=== PATIENT | female | born 1980 | race Caucasian/White ===

== ENCOUNTER 2019-04-10 02:00 | Inpatient (IN) | payer MEDICAID ==
[~2019-04-10] VITALS: Ht 165.1 cm; Wt 54.4 kg
[2019-04-10] MEDS ORDERED: SODIUM CHLORIDE 0.9% 1,000 ML IV ONE (02:28)
[2019-04-10] MEDS ORDERED: KETOROLAC 30MG/ML VIAL IV STA (02:28)
[2019-04-10] MEDS ORDERED: ONDANSETRON HCL 4MG/2ML INJ IV STA (02:28)
[2019-04-10 02:51] LABS: BASOPHILS % 0.5 % (0.0-2.0); EOSINOPHILS % 0.1 % (0.0-5.0); HEMATOCRIT. 40.2 % (36.0-48.0); HEMOGLOBIN. 13.6 g/dL (12.0-16.0); LYMPHOCYTES % 8.7 % (20.0-50.0); MEAN CORPUSCULAR HEMOGLOBIN 28.2 pg (28.0-32.0); MEAN CORPUSCULAR VOLUME 83.2 fL (81.0-99.0); MEAN PLATELET VOLUME 8.1 fl (7.4-10.4); MONOCYTES % 11.1 % (2.0-8.0); NEUTROPHILS % 79.6 % (40.0-76.0); PLATELET 557 x1000/uL (130-400); RED BLOOD CELL COUNT 4.83 mill/uL (4.2-5.4); RED CELL DISTRIBUTION WIDTH 14.7 % (11.6-14.6)
[2019-04-10 02:59] LABS: CHLORIDE 103 mEq/L (98-107)
[2019-04-10] MEDS ORDERED: SODIUM CHLORIDE 0.9% 1000ML BAG (SEPSIS BOLUS) IV NR (04:15)
[2019-04-10] MEDS ORDERED: IOHEXOL-300 100 ML BOTTLE ONE (05:22)
[2019-04-10] MEDS ORDERED: VANCOMYCIN 1 G PREMIX 200 ML IV SCH (05:45)
[2019-04-10] MEDS ORDERED: PIPERACILLIN/TAZOBACTAM 3.375GM/50ML PREMIX IV ONE (05:45)
[2019-04-10] MEDS ORDERED: PIPERACILLIN/TAZ 3.375G PREMIX 50 ML IV NR (06:00)
[2019-04-10] MEDS ORDERED: CLONIDINE 0.1MG TABLET PO PRN (07:30)
[2019-04-10] MEDS ORDERED: MAGNESIUM/ALUMINUM HYDROXIDE/SIMETHICONE 30ML UDC PO PRN (07:30)
[2019-04-10] MEDS ORDERED: PIPERACILLIN/TAZ 3.375G PREMIX 50 ML IV SCH (07:30)
[2019-04-10] MEDS ORDERED: ONDANSETRON HCL 4MG/2ML INJ IV PRN (07:30)
[2019-04-10] MEDS ORDERED: DOCUSATE SODIUM 100MG CAPSULE PO PRN (07:30)
[2019-04-10] MEDS ORDERED: GUAIFENESIN 200MG/10ML SUGAR FREE UDC PO PRN (07:30)
[2019-04-10] MEDS ORDERED: DIPHENHYDRAMINE 50MG/ML VIAL IV PRN (07:30)
[2019-04-10] MEDS ORDERED: IPRATROPIUM/ALBUTEROL 0.5-3(2.5)MG/3ML NEB HHN PRN (07:30)
[2019-04-10 08:20] VITALS: BP 78/48
[2019-04-10 08:40] LABS: PHOSPHORUS 1.8 mg/dL (2.5-4.9)
[2019-04-10] MEDS ORDERED: POTASSIUM CHLORIDE 20MEQ/PACKET PO SCH (09:00)
[2019-04-10] MEDS ORDERED: SODIUM CHLORIDE 0.9% 1,000 ML IV SCH (09:00)
[2019-04-10] MEDS: ENOXAPARIN 40MG/0.4ML SYR SUBCUT SCH (10:06)
[2019-04-10] MEDS: PIPERACILLIN/TAZOBACTAM 3.375 G in DEXT 5% WATER 100 ML IV SCH ×2 (12:48→20:26)
[2019-04-10] MEDS: MORPHINE SULFATE 2 MG/ML CPJ (NOT FOR IM USE) IV PRN ×2 (12:57→21:24)
[2019-04-10] MEDS ORDERED: VANCOMYCIN 500 MG PREMIX 100 ML IV SCH (14:00)
[2019-04-10] MEDS ORDERED: VANCOMYCIN 750 MG PREMIX 150 ML IV SCH (15:00)
[2019-04-10] MEDS: PANTOPRAZOLE 40MG DR TABLET PO SCH (16:25)
[2019-04-10 17:02] VITALS: BP 135/69
[2019-04-10 20:00] VITALS: BP 100/60
[2019-04-11] VITALS: BP 90/52
[2019-04-11] MEDS: PIPERACILLIN/TAZOBACTAM 3.375 G in DEXT 5% WATER 100 ML IV SCH ×4 (02:11→18:42)
[2019-04-11] MEDS: ACETAMINOPHEN 325MG TABLET PO PRN ×2 (02:11→09:59)
[2019-04-11] MEDS: VANCOMYCIN 750 MG PREMIX 150 ML IV SCH ×2 (02:55→09:58)
[2019-04-11 03:10] VITALS: BP 92/50
[2019-04-11 04:13] LABS: BASOPHILS % 0.6 % (0.0-2.0); EOSINOPHILS % 1.1 % (0.0-5.0); HEMATOCRIT. 26.9 % (36.0-48.0); HEMOGLOBIN. 9.2 g/dL (12.0-16.0); LYMPHOCYTES % 27.2 % (20.0-50.0); MEAN CORPUSCULAR HEMOGLOBIN 28.6 pg (28.0-32.0); MEAN CORPUSCULAR VOLUME 83.8 fL (81.0-99.0); MEAN PLATELET VOLUME 7.4 fl (7.4-10.4); MONOCYTES % 12.1 % (2.0-8.0); PLATELET 368 x1000/uL (130-400); RED BLOOD CELL COUNT 3.21 mill/uL (4.2-5.4); RED CELL DISTRIBUTION WIDTH 15.2 % (11.6-14.6)
[2019-04-11 04:21] LABS: CHLORIDE 111 mEq/L (98-107)
[2019-04-11 04:28] LABS: HDL CHOLESTEROL 21 mg/dL (40-59); LDL CHOLESTEROL 54 mg/dL (5-100)
[2019-04-11 04:29] LABS: VANCOMYCIN TROUGH 31.9 ug/mL (5.0-10.0)
[2019-04-11 08:00] VITALS: BP 87/49
[2019-04-11] MEDS: PANTOPRAZOLE 40MG DR TABLET PO SCH ×2 (09:58→20:25)
[2019-04-11] MEDS: ENOXAPARIN 40MG/0.4ML SYR SUBCUT SCH (09:59)
[2019-04-11] MEDS ORDERED: TRAMADOL 50MG TABLET PO PRN (10:00)
[2019-04-11] MEDS ORDERED: SODIUM CHLORIDE 0.9% 1,000 ML IV ONE (10:00)
[2019-04-11] MEDS ORDERED: POTASSIUM CHLORIDE INJ 40 MEQ in DEXT 5% WATER 250 ML IV SCH (12:00)
[2019-04-11 12:45] VITALS: BP 92/53
[2019-04-11] MEDS: DEXT 5%/0.9% NACL 1,000 ML IV SCH ×2 (14:00→21:30)
[2019-04-11] MEDS: SUCRALFATE 1G TABLET PO SCH ×3 (14:01→20:25)
[2019-04-11 14:24] LABS: HEMATOCRIT 28.9 % (36.0-48.0); HEMOGLOBIN 9.7 g/dL (12.0-16.0); MEAN CORPUSCULAR HEMOGLOBIN 28.2 pg (28.0-32.0); PLATELET 413 x1000/uL (130-400); RED BLOOD CELL COUNT 3.44 mill/uL (4.2-5.4)
[2019-04-11 14:30] LABS: INR 1.1; PROTHROMBIN TIME 11.2 sec (9.6-11.0)
[2019-04-11 16:00] VITALS: BP 90/51
[2019-04-11 17:09] LABS: HEMATOCRIT 26.3 % (36.0-48.0); HEMOGLOBIN 8.9 g/dL (12.0-16.0)
[2019-04-11 20:00] VITALS: BP 101/58
[2019-04-11] MEDS: MORPHINE SULFATE 2 MG/ML CPJ (NOT FOR IM USE) IV PRN (20:25)
[2019-04-11 23:49] LABS: *AMPHETAMINES SCREEN URINE NEGATIVE (NEGATIVE); *BARBITURATES SCREEN URINE NEGATIVE (NEGATIVE); *COCAINE SCREEN URINE NEGATIVE (NEGATIVE); CANNABINOID URINE SCREEN NEGATIVE (NEGATIVE); PHENCYCLIDINE URINE SCREEN NEGATIVE (NEGATIVE)
[2019-04-11 23:50] LABS: *BENZODIAZEPINES SCREEN URINE NEGATIVE (NEGATIVE); METHADONE URINE SCREEN NEGATIVE (NEGATIVE); OPIATES URINE SCREEN PRESUMTIVE POSITIVE (NEGATIVE)
[2019-04-12] VITALS: BP 95/54
[2019-04-12] MEDS: PIPERACILLIN/TAZOBACTAM 3.375 G in DEXT 5% WATER 100 ML IV SCH ×4 (00:24→17:31)
[2019-04-12 04:00] VITALS: BP 91/52
[2019-04-12 06:58] LABS: BASOPHILS % 0.6 % (0.0-2.0); EOSINOPHILS % 3.2 % (0.0-5.0); HEMATOCRIT. 25.9 % (36.0-48.0); HEMOGLOBIN. 8.8 g/dL (12.0-16.0); LYMPHOCYTES % 38.8 % (20.0-50.0); MEAN CORPUSCULAR HEMOGLOBIN 28.2 pg (28.0-32.0); MEAN CORPUSCULAR VOLUME 83.3 fL (81.0-99.0); MEAN PLATELET VOLUME 8.6 fl (7.4-10.4); MONOCYTES % 13.1 % (2.0-8.0); NEUTROPHILS % 44.3 % (40.0-76.0); PLATELET 404 x1000/uL (130-400); RED BLOOD CELL COUNT 3.11 mill/uL (4.2-5.4); RED CELL DISTRIBUTION WIDTH 14.7 % (11.6-14.6)
[2019-04-12 07:56] LABS: CHLORIDE 109 mEq/L (98-107)
[2019-04-12 08:00] VITALS: BP 127/108
[2019-04-12] MEDS: DEXT 5%/0.9% NACL 1,000 ML IV SCH (08:15)
[2019-04-12] MEDS: PANTOPRAZOLE 40MG DR TABLET PO SCH (08:16)
[2019-04-12] MEDS: SUCRALFATE 1G TABLET PO SCH ×3 (08:16→17:31)
[2019-04-12 12:00] VITALS: BP 115/90
[2019-04-12 16:00] VITALS: BP 102/78
[2019-04-12 16:15] LABS: HEMATOCRIT 27.9 % (36.0-48.0); HEMOGLOBIN 9.3 g/dL (12.0-16.0)
[2019-04-12 19:03] VITALS: BP 95/36
[2019-04-14 04:12] LABS: HIV SCREEN 4G Non Reactive (Non Reactive)
[2019-04-14 09:06] LABS: SACCHAROMYCES CEREVISIAE IGG <20.0 Units (0.0-24.9); SACCHAROMYCES CEREVISIAE IGM <20.0 Units (0.0-24.9)
[2019-04-14 15:11] LABS: ATYPICAL pANCA <1:20 titer (Neg:<1:20)
== END 2019-04-12 19:50 | disposition left against medical advice (07) | DRG 720 ==
LOC: ER 02:00 → 7WST 06:00 → ENRESERV 07:00
PROVIDERS: ADMIT Internal Medicine; ATTEND Internal Medicine
DX: A41.9 Sepsis, unspecified organism (principal); E44.1 Mild protein-calorie malnutrition; E87.1 Hypo-osmolality and hyponatremia; R71.0 Precipitous drop in hematocrit; E86.1 Hypovolemia; Z53.21 Procedure and treatment not carried out due to patient leaving prior to being seen by health care provider; E87.6 Hypokalemia; F15.10 Other stimulant abuse, uncomplicated; F17.210 Nicotine dependence, cigarettes, uncomplicated; I49.1 Atrial premature depolarization; Z68.20 Body mass index [BMI] 20.0-20.9, adult; K52.9 Noninfective gastroenteritis and colitis, unspecified
CPT/HCPCS: 36415; 71045; 74177; 78278; 80048; 80061; 80202; 80305; 82270; 83605; 83735; 84100; 84145; 84443; 84484; 85014; 85018; 85027; 85044; 86256; 86671; 86850; 86900; 87015; 87045; 87389; 87427; 87449; 89055; 93005; 93306; 93970; 96365; 99291; A9560; J1200; J1650; J1885; J2270; J2405; J2543; J3370; J3480; J7030; J7042; J7060; Q9967

== ENCOUNTER 2022-09-07 16:38 | Inpatient (IN) | payer MEDICAID, OTHER ==
[~2022-09-07] VITALS: Ht 152.4 cm; Wt 55.4 kg
[2022-09-07] MEDS ORDERED: SODIUM CHLORIDE 0.9% 1,000 ML IV ONE (22:15)
[2022-09-07 22:29] LABS: HEMATOCRIT. 25.1 % (36.0-48.0); HEMOGLOBIN. 7.6 g/dL (12.0-16.0); MEAN CORPUSCULAR HEMOGLOBIN 18.8 pg (28.0-32.0); MEAN CORPUSCULAR VOLUME 62.3 fL (81.0-99.0); MEAN PLATELET VOLUME 8.9 fl (7.4-10.4); PLATELET 433 x1000/uL (130-400); RED BLOOD CELL COUNT 4.04 mill/uL (4.2-5.4); RED CELL DISTRIBUTION WIDTH 18.7 % (11.6-14.6)
[2022-09-07 22:36] LABS: CHLORIDE 100 mEq/L (98-107)
[2022-09-07 22:50] LABS: HCG SCREEN NEGATIVE
[2022-09-07 22:55] LABS: CLARITY URINE CLOUDY (CLEAR); COLOR URINE ORANGE (YELLOW); KETONES URINE TRACE (NEGATIVE); LEUKOCYTE ESTERASE URINE 2+ (NEGATIVE); NITRITE URINE POSITIVE (NEGATIVE); OCCULT BLOOD URINE 1+ (NEGATIVE); PROTEIN URINE 2+ (NEGATIVE)
[2022-09-07] MEDS ORDERED: NOREPINEPHRINE 8MG/250ML PMX 250 ML IV ONE (23:15)
[2022-09-07] MEDS ORDERED: VANCOMYCIN 1G PREMIX 200 ML IV ONE (23:15)
[2022-09-07] MEDS ORDERED: SODIUM CHLORIDE 0.9% 1000ML BAG (SEPSIS BOLUS) IV ONE (23:15)
[2022-09-07] MEDS ORDERED: PIPERACILLIN/TAZ 3.375G PREMIX 50 ML IV ONE (23:15)
[2022-09-07 23:22] LABS: PLATELET ESTIMATE INCREASED
[2022-09-08] VITALS (59 sets, daily range): BP systolic 80–141; BP diastolic 48–86
[2022-09-08] MEDS ORDERED: ACETAMINOPHEN 325MG TABLET PO ONE (00:45)
[2022-09-08] MEDS ORDERED: DOCUSATE SODIUM 100MG CAPSULE PO PRN (01:00)
[2022-09-08] MEDS ORDERED: ACETAMINOPHEN 325MG TABLET PO PRN (01:00)
[2022-09-08] MEDS ORDERED: IPRATROPIUM/ALBUTEROL 0.5-3(2.5)MG/3ML NEB HHN PRN (01:00)
[2022-09-08] MEDS ORDERED: MAGNESIUM/ALUMINUM HYDROXIDE/SIMETHICONE 30ML UDC PO PRN (01:00)
[2022-09-08] MEDS: SODIUM CHLORIDE 0.9% 1,000 ML IV SCH ×2 (01:00→07:11)
[2022-09-08] MEDS ORDERED: NOREPINEPHRINE 8 MG in DEXT 5% WATER 242 ML IV PRN ×2 (01:00→02:45)
[2022-09-08 01:55] LABS: TOTAL IRON BINDING CAPACITY 403 ug/dL (250-450)
[2022-09-08] MEDS ORDERED: MEROPENEM 1,000 MG in SODIUM CHLORIDE 0.9% 100 ML IV SCH ×2 (03:00→03:30)
[2022-09-08 03:09] LABS: HEPATITIS B SURFACE ANTIGEN NEGATIVE
[2022-09-08 03:14] LABS: BG BASE EXCESS -9.2 mmol/L (-2.0-2.0); BG CARBOXYHEMOGLOBIN 1.7 % (0.5-1.5); BG DEOXYHEMOGLOBIN 7.4 % (0.0-5.0); BG FRACTION INSPIRED OXYGEN 21; BG HCO3 ACT 14.4 mmol/L (22.0-26.0); BG METHEMOGLOBIN 0.2 % (0.0-1.5); BG OXYGEN SATURATION 92.5 % (92.0-98.5); BG OXYHEMOGLOBIN 90.7 % (94.0-97.0); BG PCO2 22.6 mmHg (35.0-45.0); BG PH 7.422 (7.350-7.450); BG SAMPLE SITE LEFT RADIAL; BG TOTAL HEMOGLOBIN 6.1 g/dL (12.0-18.0); BG VENT MODE ROOM AIR
[2022-09-08] MEDS: HYDROCODONE/ACETAMINOPHEN 5/325MG TABLET PO PRN ×3 (03:44→18:28)
[2022-09-08] MEDS ORDERED: PHENYLEPHRINE 100 MG in DEXT 5% WATER 240 ML IV PRN (04:15)
[2022-09-08 05:36] LABS: MEAN CORPUSCULAR HEMOGLOBIN 19.1 pg (28.0-32.0); MEAN CORPUSCULAR VOLUME 62.2 fL (81.0-99.0); PLATELET 323 x1000/uL (130-400)
[2022-09-08 05:37] LABS: CHLORIDE 110 mEq/L (98-107)
[2022-09-08 05:47] LABS: CREATINE KINASE 97 IU/L (26-192); CREATINE KINASE MB FRACTION 3.3 ng/mL (0.5-3.6)
[2022-09-08 06:09] LABS: HEMATOCRIT 20.5 % (36.0-48.0); HEMOGLOBIN 6.3 g/dL (12.0-16.0)
[2022-09-08] MEDS ORDERED: ENOXAPARIN 40MG/0.4ML SYR SUBCUT SCH (09:00)
[2022-09-08] MEDS ORDERED: DEXT 5%/0.9% NACL 1,000 ML IV SCH (09:15)
[2022-09-08] MEDS: PHENYLEPHRINE 100 MG in DEXT 5% WATER 240 ML IV PRN (09:19)
[2022-09-08] MEDS: FAMOTIDINE 20MG/2ML VIAL IV SCH ×2 (09:25→21:43)
[2022-09-08] MEDS ORDERED: NALOXONE HCL 0.4MG/ML VIAL IV PRN (09:45)
[2022-09-08] MEDS ORDERED: IPRATROPIUM BROMIDE (0.02%) 0.5MG/2.5ML NEB HHN SCH (10:00)
[2022-09-08] MEDS ORDERED: MORPHINE SULFATE 2 MG/ML CPJ (NOT FOR IM USE) IV NR (10:45)
[2022-09-08 11:02] LABS: BG BASE EXCESS -8.3 mmol/L (-2.0-2.0); BG CARBOXYHEMOGLOBIN 1.4 % (0.5-1.5); BG DEOXYHEMOGLOBIN 6.8 % (0.0-5.0); BG FRACTION INSPIRED OXYGEN 40; BG HCO3 ACT 15.9 mmol/L (22.0-26.0); BG METHEMOGLOBIN 0.1 % (0.0-1.5); BG OXYGEN SATURATION 93.1 % (92.0-98.5); BG OXYHEMOGLOBIN 91.7 % (94.0-97.0); BG PCO2 27.1 mmHg (35.0-45.0); BG PH 7.385 (7.350-7.450); BG PO2 68.3 mmHg (75.0-100.0); BG SAMPLE SITE RIGHT RADIAL; BG TOTAL HEMOGLOBIN 6.8 g/dL (12.0-18.0); BG VENT MODE NASAL CANNULA
[2022-09-08] MEDS ORDERED: IOHEXOL-350 100 ML BOTTLE ONE (11:06)
[2022-09-08] MEDS ORDERED: VANCOMYCIN 750MG PREMIX 150 ML IV SCH (11:30)
[2022-09-08 13:05] LABS: HEMATOCRIT 24.3 % (36.0-48.0); HEMOGLOBIN 7.3 g/dL (12.0-16.0)
[2022-09-08] MEDS ORDERED: AZITHROMYCIN 500 MG TABLET PO SCH (13:15)
[2022-09-08] MEDS ORDERED: DEXTROSE 50% WATER 50ML SYRINGE IV NR (14:15)
[2022-09-08] MEDS: MEROPENEM 1,000 MG in SODIUM CHLORIDE 0.9% 100 ML IV SCH ×2 (15:49→21:44)
[2022-09-08] MEDS: DEXT 5%/0.9% NACL 1,000 ML IV SCH ×2 (15:57→20:00)
[2022-09-08] MEDS: VANCOMYCIN 750MG PREMIX 150 ML IV SCH ×2 (15:57→23:14)
[2022-09-08] MEDS ORDERED: KCL 20MEQ/100ML PREMIX 100 ML IV NR (16:00)
[2022-09-08 16:15] LABS: CREATINE KINASE MB FRACTION 3.3 ng/mL (0.5-3.6)
[2022-09-08] MEDS: DIPHENHYDRAMINE 50MG/ML VIAL IV PRN (18:04)
[2022-09-08] MEDS: ONDANSETRON HCL 4MG/2ML INJ IV PRN (21:44)
[2022-09-08] MEDS: ACETAMINOPHEN 325MG TABLET PO PRN (21:44)
[2022-09-09] VITALS (104 sets, daily range): BP systolic 65–200; BP diastolic 19–100
[2022-09-09] MEDS: HYDROCODONE/ACETAMINOPHEN 5/325MG TABLET PO PRN ×3 (04:10→21:55)
[2022-09-09] MEDS: ONDANSETRON HCL 4MG/2ML INJ IV PRN (04:10)
[2022-09-09] MEDS: DEXT 5%/0.9% NACL 1,000 ML IV SCH ×2 (05:27→16:25)
[2022-09-09] MEDS: MEROPENEM 1,000 MG in SODIUM CHLORIDE 0.9% 100 ML IV SCH ×3 (05:28→23:16)
[2022-09-09 05:49] LABS: HEMATOCRIT. 21.2 % (36.0-48.0); MEAN CORPUSCULAR VOLUME 64.1 fL (81.0-99.0); PLATELET 357 x1000/uL (130-400); RED BLOOD CELL COUNT 3.31 mill/uL (4.2-5.4); RED CELL DISTRIBUTION WIDTH 19.3 % (11.6-14.6)
[2022-09-09 06:00] LABS: CHLORIDE 112 mEq/L (98-107)
[2022-09-09 06:13] LABS: HDL CHOLESTEROL 16 mg/dL (40-59); LDL CHOLESTEROL 25 mg/dL (5-100)
[2022-09-09 06:31] LABS: HEMOGLOBIN. 6.3 g/dL (12.0-16.0)
[2022-09-09 07:36] LABS: PLATELET ESTIMATE NORMAL
[2022-09-09] MEDS ORDERED: KCL 20MEQ/100ML PREMIX 100 ML IV SCH (08:00)
[2022-09-09] MEDS: FAMOTIDINE 20MG/2ML VIAL IV SCH ×2 (08:24→20:27)
[2022-09-09] MEDS: AZITHROMYCIN 250 MG TABLET PO SCH (08:24)
[2022-09-09] MEDS ORDERED: MORPHINE SULFATE 2 MG/ML CPJ (NOT FOR IM USE) IV NR (11:00)
[2022-09-09] MEDS: VANCOMYCIN 750MG PREMIX 150 ML IV SCH ×2 (11:15→23:15)
[2022-09-09] MEDS ORDERED: POTASSIUM CHLORIDE INJ 40 MEQ in DEXT 5% WATER 250 ML IV ONE (11:15)
[2022-09-09] MEDS: PHENYLEPHRINE 100 MG in DEXT 5% WATER 240 ML IV PRN (11:16)
[2022-09-09] MEDS ORDERED: MORPHINE SULFATE 2 MG/ML CPJ (NOT FOR IM USE) IV SCH (12:00)
[2022-09-09 13:20] LABS: GLUCOSE CSF 64 mg/dL (41-75)
[2022-09-09 13:32] LABS: *BARBITURATES SCREEN URINE NEGATIVE (NEGATIVE); *BENZODIAZEPINES SCREEN URINE NEGATIVE (NEGATIVE); *COCAINE SCREEN URINE NEGATIVE (NEGATIVE); CANNABINOID URINE SCREEN NEGATIVE (NEGATIVE); METHADONE URINE SCREEN NEGATIVE (NEGATIVE); PHENCYCLIDINE URINE SCREEN NEGATIVE (NEGATIVE)
[2022-09-09 13:34] LABS: *AMPHETAMINES SCREEN URINE PRESUMTIVE POSITIVE (NEGATIVE); OPIATES URINE SCREEN PRESUMTIVE POSITIVE (NEGATIVE)
[2022-09-09] MEDS: KCL 20MEQ/100ML X 2 FOR TOTAL KCL 40MEQ/200ML IV SCH ×2 (13:38→15:08)
[2022-09-09 18:05] LABS: INR 1.1; PROTHROMBIN TIME 11.4 sec (9.6-11.0)
[2022-09-09] MEDS ORDERED: FOLIC ACID 1 MG, THIAMINE HCL 100 MG, MVI, ADULT NO.1 10 ML in DEXTROSE 5% WATER 1,000 ML IV ONE ×4 (20:00)
[2022-09-09 21:56] LABS: HEMATOCRIT 27.7 % (36.0-48.0); HEMOGLOBIN 8.7 g/dL (12.0-16.0)
[2022-09-09 22:35] LABS: SODIUM URINE (RAW) 75 mEq/L; SODIUM URINE 24 HR 393 mEq/24hr (40-220)
[2022-09-10] VITALS (79 sets, daily range): BP systolic 85–137; BP diastolic 50–98
[2022-09-10] MEDS: ACETAMINOPHEN 325MG TABLET PO PRN (00:54)
[2022-09-10 05:05] LABS: CHLORIDE 110 mEq/L (98-107)
[2022-09-10 05:17] LABS: PHOSPHORUS 1.2 mg/dL (2.5-4.9)
[2022-09-10 05:48] LABS: HEMATOCRIT. 26.2 % (36.0-48.0); HEMOGLOBIN. 8.1 g/dL (12.0-16.0); MEAN CORPUSCULAR HEMOGLOBIN 20.3 pg (28.0-32.0); MEAN CORPUSCULAR VOLUME 65.1 fL (81.0-99.0); MEAN PLATELET VOLUME 9.1 fl (7.4-10.4); PLATELET 286 x1000/uL (130-400); RED BLOOD CELL COUNT 4.02 mill/uL (4.2-5.4); RED CELL DISTRIBUTION WIDTH 22.6 % (11.6-14.6)
[2022-09-10 05:58] LABS: FOLIC ACID (FOLATE) SERUM 17.1 ng/mL (>5.38)
[2022-09-10] MEDS: MEROPENEM 1,000 MG in SODIUM CHLORIDE 0.9% 100 ML IV SCH ×3 (06:24→21:22)
[2022-09-10] MEDS: HYDROCODONE/ACETAMINOPHEN 5/325MG TABLET PO PRN ×2 (06:26→23:22)
[2022-09-10] MEDS: FERROUS SULFATE 325MG TABLET PO SCH ×3 (06:27→17:57)
[2022-09-10 07:55] LABS: PLATELET ESTIMATE NORMAL
[2022-09-10] MEDS: FAMOTIDINE 20MG/2ML VIAL IV SCH ×2 (08:30→21:22)
[2022-09-10] MEDS: AZITHROMYCIN 250 MG TABLET PO SCH (08:30)
[2022-09-10] MEDS: DEXT 5%/0.9% NACL 1,000 ML IV SCH ×5 (08:31→21:36)
[2022-09-10] MEDS ORDERED: POTASSIUM PHOS,M-BASIC-D-BASIC 20 MMOL in DEXT 5% WATER 243.3333 ML IV ONE (10:00)
[2022-09-10] MEDS: VANCOMYCIN 750MG PREMIX 150 ML IV SCH ×2 (12:27→17:57)
[2022-09-10] MEDS: HYDROCODONE/ACETAMINOPHEN 7.5/325MG TABLET PO PRN ×2 (12:29→17:58)
[2022-09-10] MEDS ORDERED: SODIUM CHLORIDE 10% FOR INH 15ML VIAL NEB INH NR (20:00)
[2022-09-10] MEDS: PHENYLEPHRINE 100 MG in DEXT 5% WATER 240 ML IV PRN (22:50)
[2022-09-11] VITALS (37 sets, daily range): BP systolic 93–148; BP diastolic 46–83
[2022-09-11] MEDS: ACETAMINOPHEN 325MG TABLET PO PRN (01:53)
[2022-09-11] MEDS: VANCOMYCIN 750MG PREMIX 150 ML IV SCH ×3 (02:12→17:33)
[2022-09-11] MEDS: MEROPENEM 1,000 MG in SODIUM CHLORIDE 0.9% 100 ML IV SCH ×2 (05:54→16:28)
[2022-09-11] MEDS: DEXT 5%/0.9% NACL 1,000 ML IV SCH ×4 (06:35→23:33)
[2022-09-11] MEDS: GUAIFENESIN 200MG/10ML SUGAR FREE UDC PO PRN ×2 (07:59→12:43)
[2022-09-11] MEDS: HYDROCODONE/ACETAMINOPHEN 7.5/325MG TABLET PO PRN ×3 (08:00→16:27)
[2022-09-11 08:11] LABS: HIV SCREEN 4G Non Reactive (Non Reactive)
[2022-09-11] MEDS: FAMOTIDINE 20MG/2ML VIAL IV SCH ×2 (09:16→21:18)
[2022-09-11] MEDS: AZITHROMYCIN 250 MG TABLET PO SCH (09:16)
[2022-09-11] MEDS: FERROUS SULFATE 325MG TABLET PO SCH ×3 (09:16→16:28)
[2022-09-11 11:07] LABS: HEMOGLOBIN. 8.6 g/dL (12.0-16.0); MEAN CORPUSCULAR HEMOGLOBIN 20.7 pg (28.0-32.0); MEAN CORPUSCULAR VOLUME 64.9 fL (81.0-99.0); MEAN PLATELET VOLUME 8.2 fl (7.4-10.4); PLATELET 284 x1000/uL (130-400); RED BLOOD CELL COUNT 4.16 mill/uL (4.2-5.4); RED CELL DISTRIBUTION WIDTH 23.1 % (11.6-14.6)
[2022-09-11] MEDS: ONDANSETRON HCL 4MG/2ML INJ IV PRN (11:30)
[2022-09-11] MEDS: DIPHENHYDRAMINE 50MG/ML VIAL IV PRN (11:31)
[2022-09-11 11:54] LABS: CHLORIDE 110 mEq/L (98-107)
[2022-09-11 12:10] LABS: PHOSPHORUS 2.2 mg/dL (2.5-4.9)
[2022-09-11] MEDS ORDERED: BENZONATATE 100MG CAPSULE PO PRN (14:00)
[2022-09-11] MEDS: BENZONATATE 100MG CAPSULE PO PRN (16:25)
[2022-09-11] MEDS: ALBUTEROL (0.083%) 2.5MG/3ML NEB HHN SCH ×2 (16:34→20:32)
[2022-09-11] MEDS: CEFEPIME 2,000 MG in DEXT 5% WATER 100 ML IV SCH (20:10)
[2022-09-11] MEDS: GUAIFENESIN 600MG ER TABLET PO SCH (21:18)
[2022-09-11 21:58] LABS: PLATELET ESTIMATE NORMAL
[2022-09-12 00:01] VITALS: BP 108/51
[2022-09-12] MEDS: HYDROCODONE/ACETAMINOPHEN 7.5/325MG TABLET PO PRN ×2 (00:42→10:14)
[2022-09-12] MEDS: ALBUTEROL (0.083%) 2.5MG/3ML NEB HHN SCH ×4 (00:53→21:06)
[2022-09-12 04:00] VITALS: BP 107/58
[2022-09-12 06:26] LABS: CHLORIDE 108 mEq/L (98-107); PHOSPHORUS 2.8 mg/dL (2.5-4.9)
[2022-09-12 06:27] LABS: HEMATOCRIT. 25.7 % (36.0-48.0); HEMOGLOBIN. 8.3 g/dL (12.0-16.0); MEAN CORPUSCULAR HEMOGLOBIN 20.9 pg (28.0-32.0); MEAN CORPUSCULAR VOLUME 65.1 fL (81.0-99.0); MEAN PLATELET VOLUME 9.4 fl (7.4-10.4); PLATELET 265 x1000/uL (130-400); RED BLOOD CELL COUNT 3.95 mill/uL (4.2-5.4); RED CELL DISTRIBUTION WIDTH 23.1 % (11.6-14.6)
[2022-09-12 08:00] VITALS: BP 114/68
[2022-09-12] MEDS ORDERED: POTASSIUM PHOS,M-BASIC-D-BASIC 20 MMOL in DEXT 5% WATER 243.3333 ML IV NR (09:00)
[2022-09-12] MEDS: GUAIFENESIN 600MG ER TABLET PO SCH ×2 (09:56→20:33)
[2022-09-12] MEDS: AZITHROMYCIN 250 MG TABLET PO SCH (09:56)
[2022-09-12] MEDS: FERROUS SULFATE 325MG TABLET PO SCH ×3 (09:57→17:31)
[2022-09-12] MEDS: CEFEPIME 2,000 MG in DEXT 5% WATER 100 ML IV SCH ×2 (09:57→17:30)
[2022-09-12] MEDS: DEXT 5%/0.9% NACL 1,000 ML IV SCH ×3 (09:58→23:25)
[2022-09-12] MEDS: FAMOTIDINE 20MG/2ML VIAL IV SCH ×2 (09:58→20:26)
[2022-09-12] MEDS ORDERED: IPRATROPIUM BROMIDE (0.02%) 0.5MG/2.5ML NEB HHN PRN (11:30)
[2022-09-12] MEDS ORDERED: ALBUTEROL (0.083%) 2.5MG/3ML NEB HHN PRN (11:30)
[2022-09-12 12:00] VITALS: BP 117/72
[2022-09-12] MEDS ORDERED: QUETIAPINE FUMARATE 25MG TABLET PO SCH ×2 (12:00→21:00)
[2022-09-12 13:30] LABS: PLATELET ESTIMATE NORMAL
[2022-09-12 16:00] VITALS: BP 115/65
[2022-09-12 20:00] VITALS: BP 107/62
[2022-09-12] MEDS: GUAIFENESIN 200MG/10ML SUGAR FREE UDC PO PRN ×2 (20:25→20:29)
[2022-09-12] MEDS: IBUPROFEN 600MG TABLET PO PRN (20:28)
[2022-09-13] VITALS: BP 102/46
[2022-09-13] MEDS: ALBUTEROL (0.083%) 2.5MG/3ML NEB HHN SCH ×2 (01:15→09:22)
[2022-09-13] MEDS: CEFEPIME 2,000 MG in DEXT 5% WATER 100 ML IV SCH ×2 (02:51→08:57)
[2022-09-13] MEDS: IBUPROFEN 600MG TABLET PO PRN (02:55)
[2022-09-13] MEDS: GUAIFENESIN 200MG/10ML SUGAR FREE UDC PO PRN (03:17)
[2022-09-13] MEDS: BENZONATATE 100MG CAPSULE PO PRN ×2 (03:19→12:32)
[2022-09-13 04:00] VITALS: BP 106/54
[2022-09-13] MEDS: DEXT 5%/0.9% NACL 1,000 ML IV SCH ×2 (05:12→08:57)
[2022-09-13 06:45] LABS: HEMATOCRIT 22.9 % (36.0-48.0); HEMOGLOBIN 7.4 g/dL (12.0-16.0); MEAN CORPUSCULAR HEMOGLOBIN 21.1 pg (28.0-32.0); MEAN CORPUSCULAR VOLUME 65.1 fL (81.0-99.0); PLATELET 326 x1000/uL (130-400); RED BLOOD CELL COUNT 3.52 mill/uL (4.2-5.4)
[2022-09-13 07:28] LABS: CHLORIDE 107 mEq/L (98-107)
[2022-09-13 08:00] VITALS: BP 102/45
[2022-09-13 08:15] LABS: PHOSPHORUS 2.5 mg/dL (2.5-4.9)
[2022-09-13] MEDS: FERROUS SULFATE 325MG TABLET PO SCH ×2 (08:56→12:32)
[2022-09-13] MEDS: GUAIFENESIN 600MG ER TABLET PO SCH (08:56)
[2022-09-13] MEDS: FAMOTIDINE 20MG/2ML VIAL IV SCH (08:56)
[2022-09-13] MEDS ORDERED: POTASSIUM CHLORIDE 20MEQ TABLET SR PO NR (10:45)
[2022-09-13] MEDS ORDERED: THIA100T72 MT (10:47)
[2022-09-13] MEDS ORDERED: ALBU6.7H15 INH (10:47)
[2022-09-13] MEDS ORDERED: CYAN1TAB69 PO (10:47)
[2022-09-13] MEDS ORDERED: FERR-63 PO (10:47)
[2022-09-13] MEDS ORDERED: AZIT250T12 PO (10:47)
[2022-09-13 11:18] VITALS: BP 102/45
[2022-09-14 04:10] LABS: OVA & PARASITE EXAM Final report (.)
== END 2022-09-13 17:35 | disposition home or self-care (01) | DRG 720 ==
LOC: ER 16:38 → MICUNO 09-08 00:40 → EDBEDREQ 09-08 01:26 → EDBEDREQTM 09-08 01:26 → 7WST 09-11 21:59
PROVIDERS: ADMIT Internal Medicine; ATTEND Internal Medicine
PROC: 02HV33Z Insertion of Infusion Device into Superior Vena Cava, Percutaneous Approach (ICD-10-PCS; 2022-09-08)
PROC: 30233N1 Transfusion of Nonautologous Red Blood Cells into Peripheral Vein, Percutaneous Approach (ICD-10-PCS; principal; 2022-09-09)
PROC: 009U3ZX Drainage of Spinal Canal, Percutaneous Approach, Diagnostic (ICD-10-PCS; 2022-09-09)
DX: A41.9 Sepsis, unspecified organism (principal); J96.01 Acute respiratory failure with hypoxia; R65.21 Severe sepsis with septic shock; G92.8 Other toxic encephalopathy; E44.1 Mild protein-calorie malnutrition; E87.4 Mixed disorder of acid-base balance; E87.1 Hypo-osmolality and hyponatremia; F17.210 Nicotine dependence, cigarettes, uncomplicated; M71.22 Synovial cyst of popliteal space [Baker], left knee; J18.9 Pneumonia, unspecified organism; E87.6 Hypokalemia; N39.0 Urinary tract infection, site not specified; F15.10 Other stimulant abuse, uncomplicated; Z20.822 Contact with and (suspected) exposure to COVID-19; R74.01 Elevation of levels of liver transaminase levels; F19.10 Other psychoactive substance abuse, uncomplicated; I24.8 Other forms of acute ischemic heart disease; D50.9 Iron deficiency anemia, unspecified; M54.50 Low back pain, unspecified
CPT/HCPCS: 36415; 36600; 71045; 71250; 71275; 74176; 80048; 80053; 80061; 80202; 80305; 81003; 82248; 82270; 82375; 82550; 82553; 82607; 82728; 82746; 82805; 82945; 82962; 83036; 83540; 83550; 83605; 83735; 83916; 83930; 84100; 84132; 84145; 84157; 84300; 84439; 84443; 84484; 84703; 85014; 85018; 85025; 85027; 85379; 86635; 86705; 86709; 86803; 86850; 86900; 86920; 87015; 87045; 87070; 87116; 87177; 87209; 87252; 87340; 87389; 87426; 87427; 87449; 87493; 87529; 87804; 87899; 89055; 93005; 93306; 93970; 94640; 97162; 97166; 99291; A6261; J0692; J1200; J1650; J2185; J2270; J2370; J2405; J2543; J3370; J3411; J3480; J3490; J7030; J7042; J7050; J7060; J7070; J7131; P9016; Q9967; A4315

== ENCOUNTER 2022-09-26 09:30 | Inpatient (IN) | payer MEDICAID, OTHER ==
[~2022-09-26] VITALS: Ht 160 cm; Wt 54.1 kg
[~2022-09-26 09:30] MED LIST: ALBU6.7H15 INH; AZIT250T12 PO; CYAN1TAB69 PO; FERR-63 PO; THIA100T72 MT
[2022-09-26] MEDS ORDERED: ACETAMINOPHEN 325MG TABLET PO STA (10:35)
[2022-09-26] MEDS ORDERED: MORPHINE SULFATE 4 MG/ML CPJ (NOT FOR IM USE) IV STA (10:35)
[2022-09-26] MEDS ORDERED: SODIUM CHLORIDE 0.9% 1,000 ML IV ONE (10:45)
[2022-09-26] MEDS ORDERED: SODIUM CHLORIDE 0.9% 1000ML BAG (SEPSIS BOLUS) IV ONE (10:45)
[2022-09-26] MEDS ORDERED: AZITHROMYCIN 500MG/250ML 250 ML IV NR (11:00)
[2022-09-26] MEDS ORDERED: CEFTRIAXONE 1 G PREMIX 50 ML IV NR (11:45)
[2022-09-26 12:19] LABS: BASOPHILS % 0.7 % (0.0-2.0); CHLORIDE 100 mEq/L (98-107); HEMATOCRIT. 26.2 % (36.0-48.0); HEMOGLOBIN. 8.3 g/dL (12.0-16.0); LYMPHOCYTES % 18.7 % (20.0-50.0); MEAN CORPUSCULAR HEMOGLOBIN 21.3 pg (28.0-32.0); MEAN CORPUSCULAR VOLUME 67.3 fL (81.0-99.0); MEAN PLATELET VOLUME 8.1 fl (7.4-10.4); MONOCYTES % 6.4 % (2.0-8.0); NEUTROPHILS % 74.2 % (40.0-76.0); PLATELET 510 x1000/uL (130-400); RED BLOOD CELL COUNT 3.89 mill/uL (4.2-5.4); RED CELL DISTRIBUTION WIDTH 27.1 % (11.6-14.6)
[2022-09-26] MEDS ORDERED: POTASSIUM CHLORIDE 20MEQ/PACKET PO NR (12:30)
[2022-09-26 13:04] LABS: HCG SCREEN NEGATIVE; INR 1.2
[2022-09-26 13:08] LABS: PLATELET ESTIMATE INCREASED
[2022-09-26] MEDS ORDERED: MIDODRINE HCL 5MG TABLET PO SCH (15:15)
[2022-09-26] MEDS ORDERED: ACETAMINOPHEN 650MG SUPP PR PRN (15:30)
[2022-09-26] MEDS: SODIUM CHLORIDE 0.9% 1,000 ML IV SCH (15:30)
[2022-09-26] MEDS ORDERED: IPRATROPIUM/ALBUTEROL 0.5-3(2.5)MG/3ML NEB HHN PRN (15:30)
[2022-09-26] MEDS ORDERED: DIPHENHYDRAMINE 50MG/ML VIAL IV PRN (15:30)
[2022-09-26] MEDS ORDERED: ONDANSETRON HCL 4MG/2ML INJ IV PRN (15:30)
[2022-09-26] MEDS: ENOXAPARIN 40MG/0.4ML SYR SUBCUT SCH (16:00)
[2022-09-26] MEDS ORDERED: MVI, ADULT NO.1 10 ML, FOLIC ACID 1 MG, THIAMINE HCL 100 MG in SODIUM CHLORIDE 0.9% 1,0... IV NR ×4 (16:30)
[2022-09-26] MEDS: CEFEPIME 2,000 MG in DEXT 5% WATER 100 ML IV SCH (18:00)
[2022-09-26 19:59] LABS: CLARITY URINE CLEAR (CLEAR); COLOR URINE YELLOW (YELLOW); KETONES URINE TRACE (NEGATIVE); LEUKOCYTE ESTERASE URINE 1+ (NEGATIVE); NITRITE URINE NEGATIVE (NEGATIVE); OCCULT BLOOD URINE 1+ (NEGATIVE); PROTEIN URINE TRACE (NEGATIVE); SPECIFIC GRAVITY URINE 1.011 (1.005-1.030); UROBILINOGEN URINE 0.2 E.U./dL (0.2-1.0)
[2022-09-26 20:09] LABS: *BARBITURATES SCREEN URINE NEGATIVE (NEGATIVE); *BENZODIAZEPINES SCREEN URINE NEGATIVE (NEGATIVE); *COCAINE SCREEN URINE NEGATIVE (NEGATIVE); CANNABINOID URINE SCREEN NEGATIVE (NEGATIVE); METHADONE URINE SCREEN NEGATIVE (NEGATIVE); PHENCYCLIDINE URINE SCREEN NEGATIVE (NEGATIVE)
[2022-09-26 20:23] LABS: *AMPHETAMINES SCREEN URINE PRESUMTIVE POSITIVE (NEGATIVE); OPIATES URINE SCREEN PRESUMTIVE POSITIVE (NEGATIVE)
[2022-09-26] MEDS ORDERED: DEXTROSE 50% WATER 50ML SYRINGE IV PRN (21:15)
[2022-09-26 21:30] VITALS: BP 102/56
[2022-09-26] MEDS ORDERED: IPRATROPIUM BROMIDE (0.02%) 0.5MG/2.5ML NEB HHN PRN ×2 (21:45)
[2022-09-26] MEDS ORDERED: ALBUTEROL (0.083%) 2.5MG/3ML NEB HHN PRN ×2 (21:45)
[2022-09-26 21:50] VITALS: BP 102/56
[2022-09-26] MEDS: CALAMINE LOTION 120ML TOP SCH (22:00)
[2022-09-27 00:16] VITALS: BP 97/51
[2022-09-27 00:36] LABS: PHOSPHORUS 1.5 mg/dL (2.5-4.9)
[2022-09-27 01:11] LABS: VITAMIN B12 SERUM 734 pg/mL (211-911)
[2022-09-27] MEDS: SODIUM CHLORIDE 0.9% 1,000 ML IV SCH ×3 (02:06→20:31)
[2022-09-27 04:00] VITALS: BP 96/52
[2022-09-27] MEDS: CEFEPIME 2,000 MG in DEXT 5% WATER 100 ML IV SCH ×2 (05:09→17:02)
[2022-09-27] MEDS: CALAMINE LOTION 120ML TOP SCH ×3 (05:11→21:11)
[2022-09-27 06:33] LABS: HEMATOCRIT. 25.9 % (36.0-48.0); HEMOGLOBIN. 8.3 g/dL (12.0-16.0); MEAN CORPUSCULAR HEMOGLOBIN 21.6 pg (28.0-32.0); MEAN CORPUSCULAR VOLUME 67.1 fL (81.0-99.0); MEAN PLATELET VOLUME 8.8 fl (7.4-10.4); PLATELET 428 x1000/uL (130-400); RED BLOOD CELL COUNT 3.85 mill/uL (4.2-5.4); RED CELL DISTRIBUTION WIDTH 27.4 % (11.6-14.6)
[2022-09-27 06:45] LABS: CHLORIDE 102 mEq/L (98-107)
[2022-09-27 07:04] LABS: PHOSPHORUS 1.6 mg/dL (2.5-4.9); T4 FREE 1.15 ng/dL (0.76-1.46)
[2022-09-27] MEDS: BLOOD SUGAR DIAGNOSTIC STRIP TEST SCH ×4 (07:40→20:38)
[2022-09-27 08:00] VITALS: BP 95/57
[2022-09-27] MEDS: INSULIN LISPRO 100 UNITS/ML SUBCUT SCH ×4 (08:10→20:38)
[2022-09-27] MEDS ORDERED: AZITHROMYCIN 250 MG TABLET PO SCH (09:00)
[2022-09-27] MEDS: FERROUS SULFATE 325MG TABLET PO SCH ×3 (09:35→18:10)
[2022-09-27] MEDS: PANTOPRAZOLE 40MG DR TABLET PO SCH (09:36)
[2022-09-27] MEDS: METRONIDAZOLE 500MG TABLET PO SCH ×2 (09:36→20:31)
[2022-09-27] MEDS: THIAMINE HCL 100MG TABLET PO SCH (09:37)
[2022-09-27] MEDS ORDERED: POTASSIUM PHOS,M-BASIC-D-BASIC 20 MMOL in DEXT 5% WATER 243.3333 ML IV NR (10:00)
[2022-09-27] MEDS ORDERED: IOHEXOL-350 100 ML BOTTLE ONE (10:49)
[2022-09-27 12:00] VITALS: BP 107/56
[2022-09-27 13:56] LABS: PLATELET ESTIMATE INCREASED
[2022-09-27 16:00] VITALS: BP 116/85
[2022-09-27] MEDS: MIDODRINE HCL 5MG TABLET PO SCH ×2 (16:43→17:00)
[2022-09-27] MEDS: ENOXAPARIN 40MG/0.4ML SYR SUBCUT SCH (16:44)
[2022-09-27] MEDS: ACETAMINOPHEN 650MG/20.3ML UDC GT PRN (16:47)
[2022-09-27] MEDS: DOXYCYCLINE HYCLATE 100MG CAPSULE PO SCH (16:47)
[2022-09-27 20:00] VITALS: BP 92/52
[2022-09-28] VITALS (7 sets, daily range): BP systolic 87–117; BP diastolic 45–72
[2022-09-28] MEDS: CEFEPIME 2,000 MG in DEXT 5% WATER 100 ML IV SCH ×2 (05:05→18:24)
[2022-09-28] MEDS: CALAMINE LOTION 120ML TOP SCH ×3 (05:08→21:40)
[2022-09-28] MEDS: ACETAMINOPHEN 650MG/20.3ML UDC GT PRN ×2 (06:14→20:39)
[2022-09-28 07:37] LABS: HEMATOCRIT 24.8 % (36.0-48.0); HEMOGLOBIN 7.9 g/dL (12.0-16.0); MEAN CORPUSCULAR HEMOGLOBIN 21.4 pg (28.0-32.0); MEAN CORPUSCULAR VOLUME 66.9 fL (81.0-99.0); PLATELET 428 x1000/uL (130-400); RED CELL DISTRIBUTION WIDTH 27.8 % (11.6-14.6)
[2022-09-28 07:45] LABS: CHLORIDE 110 mEq/L (98-107)
[2022-09-28] MEDS: BLOOD SUGAR DIAGNOSTIC STRIP TEST SCH ×4 (07:48→20:35)
[2022-09-28] MEDS: INSULIN LISPRO 100 UNITS/ML SUBCUT SCH ×4 (07:48→20:35)
[2022-09-28 07:49] LABS: PHOSPHORUS 1.8 mg/dL (2.5-4.9)
[2022-09-28] MEDS ORDERED: POTASSIUM CHLORIDE 20MEQ TABLET SR PO NR (09:00)
[2022-09-28] MEDS ORDERED: KCL 20MEQ/100ML PREMIX 100 ML IV ONE (09:00)
[2022-09-28] MEDS: DOXYCYCLINE HYCLATE 100MG CAPSULE PO SCH ×2 (09:35→18:25)
[2022-09-28] MEDS: METRONIDAZOLE 500MG TABLET PO SCH ×2 (09:35→20:38)
[2022-09-28] MEDS: PANTOPRAZOLE 40MG DR TABLET PO SCH (09:35)
[2022-09-28] MEDS: MIDODRINE HCL 5MG TABLET PO SCH ×3 (09:36→18:25)
[2022-09-28] MEDS: THIAMINE HCL 100MG TABLET PO SCH (09:36)
[2022-09-28] MEDS: FERROUS SULFATE 325MG TABLET PO SCH ×3 (09:37→18:26)
[2022-09-28] MEDS: SODIUM CHLORIDE 0.9% 1,000 ML IV SCH ×2 (09:40→18:25)
[2022-09-28] MEDS ORDERED: POTASSIUM PHOS,M-BASIC-D-BASIC 20 MMOL in DEXT 5% WATER 243.3333 ML IV NR (10:30)
[2022-09-28] MEDS: ENOXAPARIN 40MG/0.4ML SYR SUBCUT SCH (18:24)
[2022-09-28] MEDS: METHYLPREDNISOLONE SOD SUCC 125 MG/2 ML VIAL IV SCH ×2 (18:29→23:50)
[2022-09-29] VITALS: BP 112/62
[2022-09-29 04:00] VITALS: BP 104/58
[2022-09-29] MEDS: CEFEPIME 2,000 MG in DEXT 5% WATER 100 ML IV SCH (05:16)
[2022-09-29] MEDS: CALAMINE LOTION 120ML TOP SCH ×2 (05:16→13:07)
[2022-09-29] MEDS: METHYLPREDNISOLONE SOD SUCC 125 MG/2 ML VIAL IV SCH ×2 (05:16→11:26)
[2022-09-29] MEDS: SODIUM CHLORIDE 0.9% 1,000 ML IV SCH ×2 (05:17→13:07)
[2022-09-29 06:40] LABS: HEMATOCRIT 25.2 % (36.0-48.0); MEAN CORPUSCULAR HEMOGLOBIN 21.3 pg (28.0-32.0); MEAN CORPUSCULAR VOLUME 67.2 fL (81.0-99.0); PLATELET 473 x1000/uL (130-400); RED BLOOD CELL COUNT 3.75 mill/uL (4.2-5.4); RED CELL DISTRIBUTION WIDTH 27.5 % (11.6-14.6)
[2022-09-29] MEDS: BLOOD SUGAR DIAGNOSTIC STRIP TEST SCH ×3 (07:40→17:02)
[2022-09-29 07:46] LABS: CHLORIDE 108 mEq/L (98-107)
[2022-09-29 07:52] LABS: PHOSPHORUS 2.7 mg/dL (2.5-4.9)
[2022-09-29 08:00] VITALS: BP 111/55
[2022-09-29] MEDS: MIDODRINE HCL 5MG TABLET PO SCH ×3 (08:06→17:00)
[2022-09-29] MEDS: FERROUS SULFATE 325MG TABLET PO SCH ×2 (08:06→12:03)
[2022-09-29] MEDS: THIAMINE HCL 100MG TABLET PO SCH (08:06)
[2022-09-29] MEDS: DOXYCYCLINE HYCLATE 100MG CAPSULE PO SCH ×2 (08:06→17:00)
[2022-09-29] MEDS: METRONIDAZOLE 500MG TABLET PO SCH (08:06)
[2022-09-29] MEDS: INSULIN LISPRO 100 UNITS/ML SUBCUT SCH ×2 (08:08→12:05)
[2022-09-29] MEDS ORDERED: FAMOTIDINE 20MG TABLET PO SCH (09:00)
[2022-09-29 11:49] VITALS: BP 119/72
[2022-09-29] MEDS: ENOXAPARIN 40MG/0.4ML SYR SUBCUT SCH (15:11)
[2022-09-29 15:27] VITALS: BP 115/51
[2022-09-29] MEDS ORDERED: METR-167 PO (15:34)
[2022-09-29 16:00] VITALS: BP 115/51
[2022-09-29] MEDS ORDERED: SULF1TAB48 MT (16:32)
[2022-09-29] MEDS ORDERED: P20 MT (16:33)
== END 2022-09-29 17:41 | disposition home or self-care (01) | DRG 720 ==
LOC: ER 09:30 → MICUSO 14:10 → EDBEDREQTM 14:15 → EDBEDREQ 14:15 → 7WST 21:24
PROVIDERS: ADMIT Internal Medicine; ATTEND Internal Medicine
DX: A41.9 Sepsis, unspecified organism (principal); A75.2 Typhus fever due to Rickettsia typhi; J18.9 Pneumonia, unspecified organism; E44.0 Moderate protein-calorie malnutrition; D50.9 Iron deficiency anemia, unspecified; E87.6 Hypokalemia; F15.10 Other stimulant abuse, uncomplicated; F17.210 Nicotine dependence, cigarettes, uncomplicated; Z20.822 Contact with and (suspected) exposure to COVID-19; K52.9 Noninfective gastroenteritis and colitis, unspecified; N39.0 Urinary tract infection, site not specified; R74.01 Elevation of levels of liver transaminase levels; Z88.0 Allergy status to penicillin; Z79.899 Other long term (current) drug therapy; Z86.16 Personal history of COVID-19; Z87.01 Personal history of pneumonia (recurrent); Z91.199 Patient's noncompliance with other medical treatment and regimen due to unspecified reason; Z68.21 Body mass index [BMI] 21.0-21.9, adult
CPT/HCPCS: 36415; 71045; 71275; 74176; 80048; 80053; 80305; 80320; 81003; 82607; 82746; 82785; 82962; 83036; 83540; 83550; 83605; 83735; 83880; 84100; 84145; 84439; 84443; 84484; 84703; 85025; 85027; 85379; 87426; 87449; 87804; 93005; 93970; 97166; 97535; 99291; C1893; J0456; J0692; J0696; J1200; J1650; J1815; J2270; J2930; J3411; J3490; J7030; J7060; Q9967; G0480